=== PATIENT | female | born 1985 | race Caucasian/White ===

== ENCOUNTER 2021-11-09 18:22 | Emergency (ER) | payer OTHER ==
[~2021-11-09] VITALS: Ht 170.2 cm; Wt 63.5 kg
--- NOTE | 2021-11-09 19:04 | NUR ---
Dr pfeiffer at bedside, MSE in progress.
[2021-11-09] MEDS ORDERED: HYDROCODONE/APAP 5-325MG TABLET PO ONE (19:15)
[2021-11-09] MEDS ORDERED: ONDANSETRON ODT 4 MG TAB.RAPDIS SL ONE (19:15)
[2021-11-09] MEDS ORDERED: HYDROCODONE/APAP 5-325MG TABLET ONE (19:22)
[2021-11-09] MEDS ORDERED: ONDANSETRON ODT 4 MG TAB.RAPDIS ONE (19:22)
[2021-11-09] MEDS ORDERED: HYDR-4209 PO (19:48)
[2021-11-09] MEDS ORDERED: ONDA4TAB5 PO (19:48)
--- NOTE | 2021-11-09 19:58 | NUR ---
Patient discharged to home in stable condition. Written and verbal after care instructions given. Patient verbalizes understanding of instructions. Stressed follow up or return to ER for worsening s/s. pt ambulated with steady gait. denies pain. no SOB. no chest pain. Shoulder sling applied to left arm.
[2021-11-09 20:00] VITALS: BP 121/71
== END 2021-11-09 20:01 | disposition home or self-care (01) ==
LOC: ER 19:26
DX: S52.125A Nondisplaced fracture of head of left radius, initial encounter for closed fracture (principal); W18.39XA Other fall on same level, initial encounter; Y93.51 Activity, roller skating (inline) and skateboarding; Y92.89 Other specified places as the place of occurrence of the external cause; J45.909 Unspecified asthma, uncomplicated
CPT/HCPCS: 73080; 73090; A4663; Q0162